=== PATIENT | female | born 1970 | race American Indian/Alaskan Native ===

== ENCOUNTER 2025-03-05 15:21 | Emergency (ER) | payer OTHER ==
[~2025-03-05] VITALS: Ht 177.8 cm; Wt 125.6 kg
[2025-03-05 16:13] LABS: BASOPHILS ABSOLUTE AUTO 0.02 K/mm3 (0.00-0.23); BASOPHILS PERCENT AUTO 0 % (0-2); EOSINOPHILS ABSOLUTE AUTO 0.33 K/mm3 (0.00-0.68); EOSINOPHILS PERCENT AUTO 4 % (0-6); Hematocrit 43.6 % (33.0-51.0); Hemoglobin 15.1 g/dL (11.5-16.0); IMMATURE GRAN ABSOLUTE AUTO 0.06 K/mm3 (0.00-0.10); IMMATURE GRAN PERCENT AUTO 1 % (0-1); LYMPHOCYTES ABSOLUTE AUTO 1.42 K/mm3 (0.84-5.20); LYMPHOCYTES PERCENT AUTO 19 % (21-46); MONOCYTES ABSOLUTE AUTO 0.73 K/mm3 (0.16-1.47); MONOCYTES PERCENT AUTO 10 % (4-13); Mean Corpuscular HGB Conc 34.6 g/dL (31.5-36.5); Mean Corpuscular Volume 80 fL (80-100); NEUTROPHILS ABSOLUTE AUTO 5.06 K/mm3 (1.96-9.15); NEUTROPHILS PERCENT AUTO 66 % (41-73); NRBC ABSOLUTE 0.00 K/mm3 (0.00-0.02); NRBC Auto 0.0 /100 WBC (0.0-0.2); Platelet Count 336 K/mm3 (150-400); RDW Coefficient Variation 13.3 % (11.7-14.2); RDW Standard Deviation 37.8 fL (35.1-46.3)
[2025-03-05 16:49] LABS: Alanine Aminotransfer (ALT/SGP 225.0 U/L (12-78); Albumin, Blood 3.6 g/dL (3.4-5.0); Albumin/Globulin Ratio 0.8 (0.8-1.8); Anion Gap 7.0 mmol/L (3-11); Aspartate Aminotrans (AST/SGOT 107.0 U/L (12-37); Bilirubin, Total 0.5 mg/dL (0.1-1.0); Blood Urea Nitrogen 15.0 mg/dL (8-24); CO2, Blood 27.0 mmol/L (21-32); Calcium, Blood 9.6 mg/dL (8.5-10.1); Chloride, Blood 104.0 mmol/L (98-108); Creatinine, Blood 0.61 mg/dL (0.40-1.00); Globulin, Blood 4.4 g/dL (2.2-4.0); Glucose, Blood 122.0 mg/dL (70-99); Potassium, Blood 3.9 mmol/L (3.5-5.5); Sodium, Blood 134.0 mmol/L (136-145); Total Protein, Blood 8.0 g/dL (6.4-8.2)
[2025-03-05] MEDS ORDERED: Diazepam 5 MG / ML 2ML SYR IV ONE (18:05)
[2025-03-05] MEDS ORDERED: CYMBALTA20 M1 PO (20:24)
[2025-03-05] MEDS ORDERED: DULoxetine HCL 30 MG Cap DR PO ONE (20:25)
== END 2025-03-05 20:35 | disposition home or self-care (01) ==
LOC: ER 15:21
PROVIDERS: Student in an Organized Health Care Education/Training Program
DX: F32.A Depression, unspecified (principal); R00.0 Tachycardia, unspecified; R91.1 Solitary pulmonary nodule; R94.5 Abnormal results of liver function studies; Z79.899 Other long term (current) drug therapy
CPT/HCPCS: 71046; 71260; 80053; 84484; 85025; 85379; 93005; 93010; 99284-25; A9270; Q9967